=== PATIENT | female | born 1990 | race African-American/Black ===

== ENCOUNTER 2017-12-10 10:00 | Emergency (ER) | payer SELFPAY ==
[~2017-12-10] VITALS: Ht 157.5 cm; Wt 90.7 kg
[2017-12-10 10:52] VITALS: BP 142/52
== END 2017-12-10 13:34 | disposition home or self-care (01) ==
LOC: ER 10:00
DX: K04.7 Periapical abscess without sinus (principal); Z88.0 Allergy status to penicillin